=== PATIENT | female | born 1950 | race Caucasian/White ===

== ENCOUNTER 2016-12-28 07:06 | Day surgery (SDC) | payer MEDICARE, BC ==
[~2016-12-28] VITALS: Ht 162.6 cm; Wt 88.1 kg
[~2016-12-28 07:06] MED LIST: ASPI81 PO; CARV12.52 PO; LEVO.15 PO; NAPR-573 PO
[2016-12-28] MEDS ORDERED: MUPIROCIN 2% OINT 1 APPLIC/GM SYR NASAL SCH (07:45)
[2016-12-28] MEDS ORDERED: NS 1000 ML IV SCH (07:45)
[2016-12-28] MEDS ORDERED: SODIUM CHLORID 0.9% 500 ML IV PRN (08:00)
[2016-12-28] MEDS ORDERED: VANCOMYCIN 1000 MG/NS 250 ML IV SCH ×2 (08:00)
[2016-12-28] MEDS ORDERED: Hold AM Insulin & AM Hypoglycemic medications in diabetic patients PRN (08:00)
[2016-12-28] MEDS ORDERED: CHLORHEXIDINE GLUCONATE 2 % 1 PACK (2 CLOTHS) TOPICAL PRN (08:00)
[2016-12-28] MEDS ORDERED: NO Heparin, Lovenox, Coumadin at least 12 hours prior to procedure. PRN (08:00)
[2016-12-28] MEDS ORDERED: POVIDONE IODINE 5% (ANTISEPSIS KIT) 4 APPLICATIONS EACH NARE PRN (08:00)
[2016-12-28] MEDS ORDERED: CHLORHEXIDINE GLUCONATE 2 % 1 PACK (2 CLOTHS) TOPICAL SCH (08:00)
[2016-12-28] MEDS ORDERED: METOPROLOL TARTRATE 25 MG TAB PO PRN (08:00)
[2016-12-28] MEDS ORDERED: LORazepam 1 MG TAB SL SCH (08:00)
[2016-12-28] MEDS ORDERED: POVIDONE IODINE 5% (ANTISEPSIS KIT) 4 APPLICATIONS EACH NARE SCH (08:00)
[2016-12-28] MEDS ORDERED: LACTATED RINGER'S 1000 ML IV PRN (08:00)
[2016-12-28] MEDS ORDERED: INSULIN HUMAN REGULAR 1,000 UNITS/10 ML VIAL SQ PRN (08:00)
[2016-12-28] MEDS ORDERED: ceFAZolin 2 GM PREMIX 50 ML IV SCH (08:00)
[2016-12-28 08:06] LABS: AUTOMATED NEUTROPHIL # 3.7 TH/MM3 (1.8-7.7); BASOPHIL % 0.8 % (0.0-2.0); EOSINOPHIL # 0.1 TH/MM3 (0-0.4); EOSINOPHIL % 2.4 % (0.0-4.0); HEMATOCRIT 43.7 % (35.0-46.0); LYMPH % 29.8 % (9.0-44.0); LYMPHOCYTE # 1.8 TH/MM3 (1.0-4.8); MEAN CELL VOLUME 86.5 FL (80.0-100.0); MEAN CORPUSCULAR HEMOGLOBIN 29.5 PG (27.0-34.0); MEAN CORPUSCULAR HGB CONC 34.1 % (32.0-36.0); MONO % 6.7 % (0.0-8.0); NEUT % 60.3 % (16.0-70.0); PLATELET COUNT 136 TH/MM3 (150-450); RED BLOOD COUNT 5.05 MIL/MM3 (4.00-5.30); RED CELL DISTRIBUTION WIDTH 14.2 % (11.6-17.2); WHITE BLOOD COUNT 6.1 TH/MM3 (4.0-11.0)
[2016-12-28 08:12] VITALS: BP 91/58; PULSE 60; RESP 18; TEMP 98.2; O2SAT 94
[2016-12-28 08:15] LABS: PROTHROMBIN TIME - PATIENT 10.7 SEC (9.8-11.6)
[2016-12-28] MEDS ORDERED: BUPR100CR PO (08:20)
[2016-12-28] MEDS ORDERED: LEVO25TA4 PO (08:20)
[2016-12-28] MEDS ORDERED: MECL12.574 PO (08:20)
[2016-12-28] MEDS ORDERED: ASPI81TA11 PO (08:20)
[2016-12-28] MEDS ORDERED: CARV25TA PO (08:20)
[2016-12-28 08:22] LABS: BICARBONATE 28.4 MEQ/L (21.0-32.0); POTASSIUM 3.9 MEQ/L (3.5-5.1)
[2016-12-28 08:25] LABS: HEMO FLAGS AUTO DIFF
[2016-12-28 08:41] LABS: SCAN/DIFF AUTO DIFF CONFIRMED
[2016-12-28] MEDS ORDERED: FAMOTIDINE 20 MG/2 ML VIAL ONE (10:44)
[2016-12-28] MEDS ORDERED: MIDAZOLAM HCL 2 MG/2 ML VIAL ONE (10:44)
[2016-12-28] MEDS ORDERED: LIDOCAINE HCL 2% 50 ML VIAL ONE (11:04)
[2016-12-28] MEDS ORDERED: VANCOMYCIN 500 MG VIAL ONE (11:04)
--- NOTE | 2016-12-28 11:51 | CATHPROC ---
[facility] HIS Report Study Information Study Number Admission Scheduled Start Study Start [id number] Dec 28 2016 7:06AM 12/28/2016 Dec 28 2016 10:31AM [place] [facility] Cardiac Pacer/ICD Admit Source Facility Department Other [facility] - Stretch Machine Operator Physician and Clinical Staff Initial Arlet James Machine Repairer Eunice Anderson RN Other Anesthesia, CHEMICAL EQUIPMENT SALES ENGINEER Recorder Angelique Garces,Shankar LeesRT(R) Equipment Time Installation Supervisor Description Size Mfg Part Number Used/Scraped DERMABOND, ADHESIVE SKIN [id number] 10:34 CORDIS/PACER * Used GLUE MINI *[id number]-1103 10:34 MEDLINE [employer] SUTURE, STRIP PLUS 1/2" * Used *[id number] 10:34 Lucky O[employer] PACER MENDES, LIMB * 2530 *[id number] Used [id number] 10:34 [employer] PACER PACK, PACER CUSTOM * Used *[id number] 11:12 Needle Sponge Count 2 2 Used 11:14 Needle Sponge Count 2 22 Used 11:14 Needle Sponge Count 20 200 Used SUTURE, 2-0 VICRYL [CT1] ([id number]) [id number] 10:34 [facility] BLANKET,WARM AIR CCL * Used *[id number] [facility] PAD, ELECTROSURGICAL 10:34 * [id number] *[id number] Used SURGICAL GROUNDING ORANGE 11:35 VITATRON [employer] DEFIBRILLATOR, VIVA XT ASSISTANT DISTRIBUTION MANAGER-D DDE-DDDR [id number] Used Equipment Model, Serial, Lot Number and Expiration Data Description Model Number Serial Number Lot Number Expiration Date DEFIBRILLATOR, VIVA XT ASSISTANT DISTRIBUTION MANAGER-D [id number] 03-22-2018 History: Allergies Allergy Reaction Lasix Levaquin History: Risk Factors Hypertension Dyslipidemia Previous Heart Failure Yes Yes Yes Prior Valve Surgery Yes Labs Hgb (g/dl) Hct (%) RBC (MIL/MM3) WBC (l/cumm) Platelets (thousands) 12.00-18.00 37.00-55.00 4.80-6.20 4.80-10.80 140.00-450.00 14.0 43 5.5 6.1 136 Glucose (mg/dl) BUN (mg/dl) Creatinine (mg/dl) BUN:Creatinine (1:x) 60.00-110.00 8.00-20.00 0.10-9.00 10.00-20.00 85 18 0.8 22.5 Na (meq/l) K (meq/l) 138.00-146.00 3.80-5.10 140 3.9 INR (PTT:PT) 0.50-2.00 1 Medication Medication Total Dose (Bolus/Oral) Medication Total Dosage/Unit 2% XYLOCAINE 50 mL Medications (Bolus/Oral) Medication Time Given Dosage/Unit Administered By Reason 2% XYLOCAINE 12/28/2016 11:29:55 AM 50 mL Arlet Soni 50 mL 2% XYLOCAINE given in lab by Arlet Soni via Subcutaneous. Medication (Drip) Medication Time Given Dosage/Unit Concentration/Unit Diluent (ml) Solution ANCEF 12/28/2016 10:50:00 AM 2 g Patient arrived on 2 g ANCEF given by Anesthesia, CHEMICAL EQUIPMENT SALES ENGINEER via Peripheral IV. IV Solutions 12/28/2016 10:51:01 AM 50 mL (IV) 500 NaCl .9 Patient arrived on IV Solutions via Peripheral IV. Pump/Drip Flow using NaCl .9. VANCOMYCIN DRIP 12/28/2016 10:50:00 AM 1 g Patient arrived on 1 g VANCOMYCIN DRIP given by Anesthesia, CHEMICAL EQUIPMENT SALES ENGINEER via Peripheral IV. Initial Case Assessment Cardiovascular HR NIBP Chest Pain 94 180/105 0 Edema Present Skin color Skin None Normal Warm Dry Circulatory - Lower Extremities Color Lower Right Color Lower Left Normal Normal Neurological State Oriented to time-place- Alert Moves all extremities person Respiration - General Respiration Rate SpO2 (%) (B/min) 17 97 Chronological Log Time Study Chronological Log 10:48:13 Patient arrived via Bed. 10:48:14 Patient Name, D.O.B, / Armband Verified By R.N. 10:48:22 Consent signed by the physician and the patient and verified by the Stretch Machine Operator staff. 10:48:28 Anesthesia at bedside. Assumes care of patient. 10:48:37 Patient has been NPO for More than 6Hrs. 10:48:38 Skin Breakdown- None 10:49:16 Disposable Defibrillator Pads Placed On Patient. 10:49:19 Ellie Prominences Protected 10:49:22 IV Warmer Connected To Patient. 10:49:24 A # 20 IV was noted in the Hand (left). Grade = 0 10:50:00 Patient arrived on 1 g VANCOMYCIN DRIP given by Anesthesia, CHEMICAL EQUIPMENT SALES ENGINEER via Peripheral IV. 10:50:00 Patient arrived on 2 g ANCEF given by Anesthesia, CHEMICAL EQUIPMENT SALES ENGINEER via Peripheral IV. 10:50:45 A # 22 IV was noted in the Wrist (right). Grade = 0 10:51:01 Patient arrived on IV Solutions via Peripheral IV. Pump/Drip Flow using NaCl .9. Assessment: Initial Case, HR=94 BPM, ACAK=789/105 mmhg, Chest Pain=0, Edema=None, Color=Normal, Skin = Warm, Dry Lower Right Extremities: Color=Normal 10:51:35 Lower Left Extremities: Color=Normal Neurological: State=Alert, Ox3, DOYLE Respiration: Resp=17 B/min, SpO2=97 % 10:59:18 Table restraints applied according to hospital policy 11:00:09 2% CHLORHEXIDINE GLUCONATE WASH AND NASAL SWIPE DONE PRIOR TO PROCEDURE. 11:07:06 Left Upper Chest Prepped Times Two. First Sponge And Instrument Count Done by Eunice Anderson, ROSALIA. 11:12:02 Hypo's: 2, Sponges: 20, Bovie/scratch: 2 Sutures: 2, Blades: 1, Instruments: 26, Syveck Patches: ~SYVECK PATCH~ 11:20:27 MD arrived. Time Out. Correct patient, procedure, procedure equipment, site and side verified with physici an present. Time 11:28:45 concurred by MD, individual staff and CHEMICAL EQUIPMENT SALES ENGINEER. 11:29:50 Case Start 11:29:55 50 mL 2% XYLOCAINE given in lab by Arlet Soni via Subcutaneous. 11:31:06 Surgical Incision Made. 11:33:08 A pocket was created at the L Upper Chest. 11:33:31 A device was explanted. 11:33:55 A DEFIBRILLATOR, VIVA XT ASSISTANT DISTRIBUTION MANAGER-D DDE-DDDR was connected and placed in the pocket. 11:37:13 Pocket flushed with antibiotic solution 11:37:30 Implant Procedure was performed. 11:37:38 A Bivent ICD Implant . (Dual) Second Sponge And Instrument Count Done by Eunice Anderson, ROSALIA. 11:39:57 Hypo's: 2, Sponges: 20, Bovie/scratch: 2 Sutures: 2, Blades: 1, Instruments: 26, Syveck Patches: ~SYVECK PATCH~ 11:44:28 The pocket was closed. 11:44:39 A two Joul DFT was performed. 11:44:58 The DFT was Success at 20 Joules, 47 Ohms lead impedance and 4.3 ms charge time. Final Sponge And Instrument Count Done by Eunice Anderson RN. 11:46:13 Hypo's: 2, Sponges: 20, Bovie/scratch: 2 Sutures: 2, Blades: 1, Instruments: ~INSTRU~, Syveck Patches: ~SYVECK PATCH~ 11:46:27 Case End 11:47:15 Steri-strips and a sterile dressing applied to site. 11:47:43 No case complications noted. 11:47:51 Bedside Report will be given. 11:47:53 Implantable Device card placed in patient's chart. 11:53:28 [facility] A sling was placed on the affected arm. End Study - Maximum Contrast Load Max Contrast Load (mL) 550.6 End Study - Radiation Exposure Fluoro Time (minutes) 0.1 End Study - Patient Disposition Complications Transferred To No Stretch Machine Operator Holding
[2016-12-28] MEDS ORDERED: CEPH-460 PO (12:00)
[2016-12-28] MEDS ORDERED: ONDANSETRON HCL 4 MG/2 ML VIAL IV PRN (12:00)
[2016-12-28] MEDS ORDERED: HYDR-3366 PO (12:00)
[2016-12-28] MEDS ORDERED: ACETAMINOPHEN/CODEINE 300 MG/30 MG TAB PO PRN ×2 (12:00)
[2016-12-28] MEDS ORDERED: PROPOFOL 200 MG/20 ML AMP IV ONE (13:51)
--- NOTE | 2016-12-28 14:00 | EKG ---
Date Performed: 12/28/2016 Time Performed: 07:31:58 PTAGE: 66 years EKG: Ventricular pacing. Pacemaker rhythm - no further analysis Compared to prior tracing no sig nificant change Abnormal ECG PREVIOUS TRACING : 03/26/2012 14.59 DOCTOR: Nora Santamaria Interpretating Date/Time 12/28/2016 13:52:06
--- NOTE | 2016-12-29 13:02 | MP ---
cc: MENA SALDANA M.D., HANSCY M.D. DATE OF SURGERY: 12/28/2016 PROCEDURE Biventricular pacer defibrillator removal, biventricular pacer defibrillator replacement and device testing. INDICATION Mrs. Claros is a 66-year-old female with congestive heart failure, coronary artery disease, previous biventricular pacer defibrillator implanted in February 2012, generator currently end-of-life. The patient is biventricular pacing. She has a normal ejection fraction. She is on optimal medical treatment. She is to undergo generator replacement. The risks, the nature and the benefit of the procedure were clearly stated to her. The risks include pneumothorax, cardiac perforation, stroke and even . She understood and agreed to proceed. DETAILS OF PROCEDURE After written informed consent was obtained, the patient was brought to the EP lab where she was prepped and draped in the usual sterile fashion. Conscious sedation was initiated and maintained throughout the procedure by the anesthesiologist. Once sedation was verified, the left infraclavicular area over the existing generator was anesthetized with 2% Xylocaine. Using a #11 blade scalpel, a 3 cm incision was made over the existing generator. The incision was then taken down to the fascial layer using Bovie cautery and blunt dissection. Once exposed the generator was removed from the pocket. Scar tissue was removed from around the lead. The pocket was expanded. Pocket revision was performed. Then the leads were disconnected from the generator and tested. After adequate pacing and sensing thresholds were obtained, the pocket was copiously irrigated with antibiotic solution. The leads were connected to the generator and placed into the pocket. I did proceed with device testing. Initial induction consisted of a T-wave shock which induced ventricular fibrillation which was adequately detected and treated by the ICD generator delivering a 20 defibrillatory shock converting the patient back into sinus rhythm. Shocking impedance 47 ohms, charge time 4.3 seconds. At that point NIPS was complete. I did proceed with wound closure. The deep fascial layer was re-approximated using 2-0 Vicryl suture in a continuous fashion. The subcutaneous layer was approximated using 2-0 Vicryl suture in a continuous fashion. The subcuticular layer was approximated using 2-0 Vicryl suture in a continuous fashion. Dermabond adhesive was applied to the wound followed by a sterile pressure dressing. There was no complication. The patient tolerated the procedure. Blood loss minimal. EXPLANTED HARDWARE The explanted biventricular pacer defibrillator is a Medtronic, model B053TPH, serial number [id number]. IMPLANTED HARDWARE The implanted biventricular pacer defibrillator is a Medtronic, model [id number], serial number [id number]. THRESHOLDS The right atrial pacing threshold in bipolar mode was 0.75 volts at 0.5 milliseconds. Lead impedance 380 ohms. R-wave at 1.1 millivolts. The right ventricle pacing threshold in bipolar mode was 0.75 volts at 0.5 milliseconds. Lead impedance 223 ohms. R-wave at 11.1 millivolts. The left ventricular pacing threshold in bipolar mode was 1 volt at 0.5 milliseconds. Lead impedance 223 ohms. The right ventricle defibrillatory threshold was 20 joules. Shocking impedance 47 ohms, charge time 4.3 seconds. SETTINGS The device is set in a DDD 60, upper limit 130 beats per minute. AVD then paced at 160 and set at 140, first by 40 milliseconds. The defibrillatory portion is for two zones, one zone for ventricle tachycardia between 170 and 250 beats per minute. Initial therapy consists of one burst of ATP, one RAMP, 81%, 10 pause, 10 millisecond incremental followed by 20 then 25 and all subsequent shocks at 35 defibrillatory shock. The second zone is for ventricular fibrillation above 250 beats per minute. First therapy at 25 and all subsequent shocks at 35 defibrillatory shock. CONCLUSIONS Successful biventricular pacer defibrillator removal, biventricular defibrillator replacement and device testing. COMMENT/RECOMMENDATION The patient is going to be transferred the telemetry unit. She will be observed and can be discharged home later today. Arlet Soni MD HS/GRIS /11:58 AM /12:36 PM
== END 2016-12-28 14:41 | disposition home or self-care (01) ==
LOC: HDOC 07:06 → HDIC 07:07 → HDOC 14:41
PROVIDERS: ATTEND Internal Medicine Interventional Cardiology
DX: Z45.02 Encounter for adjustment and management of automatic implantable cardiac defibrillator (principal); I50.9 Heart failure, unspecified; I42.9 Cardiomyopathy, unspecified; I44.7 Left bundle-branch block, unspecified; I34.0 Nonrheumatic mitral (valve) insufficiency; I47.1 Supraventricular tachycardia; Z87.891 Personal history of nicotine dependence; Z01.810 Encounter for preprocedural cardiovascular examination; Z01.818 Encounter for other preprocedural examination
CPT/HCPCS: 00530; 33229; 33264; 80048; 85025; 85610; 85730; 86077; 86850; 86870; 86900; 86901; 86920; 86921; 86922; 93005; C1882; J0690; J2250; J3370; J7050